=== PATIENT | female | born 1985 ===

== ENCOUNTER 2019-10-30 17:06 | Emergency (ER) | payer BC ==
[~2019-10-30] VITALS: Ht 167.6 cm; Wt 59.9 kg
[2019-10-30] MEDS ORDERED: CYTOMEL5 MCG PO (17:47)
[2019-10-30] MEDS ORDERED: SYNTHROID112 MCG PO (17:47)
[2019-10-30] MEDS ORDERED: FLUCONAZOLE100 MG PO (19:33)
== END 2019-10-30 20:05 | disposition home or self-care (01) ==
LOC: ER 17:06
DX: N76.0 Acute vaginitis (principal)

== ENCOUNTER 2019-11-11 08:46 | Outpatient (CLI) | payer BC ==
[~2019-11-11 08:46] MED LIST: CYTOMEL5 MCG PO; FLUCONAZOLE100 MG PO; SYNTHROID112 MCG PO
== END 2019-11-11 15:00 | disposition home or self-care (01) ==
LOC: LAB 08:46
DX: N30.00 Acute cystitis without hematuria (principal); D64.89 Other specified anemias